=== PATIENT | female | born 1965 | race Caucasian/White ===

== ENCOUNTER 2018-10-05 21:34 | Emergency (ER) | payer OTHER ==
[~2018-10-05] VITALS: Ht 170.2 cm; Wt 99.3 kg
[2018-10-05 21:36] VITALS: BP 148/90
[2018-10-05 22:19] LABS: EOSINOPHILS # (AUTO) 0.1 X10'3 (0-0.9); EOSINOPHILS % (AUTO) 0.6 % (0-6); MEAN PLATELET VOLUME 8.9 FL (7.4-10.4)
[2018-10-05 22:22] LABS: BASOPHILS % (AUTO) 0.3 % (0-1); HEMATOCRIT 45.7 % (35.0-45.0); HEMOGLOBIN 15.2 g/dl (12.0-16.0); LYMPHOCYTES # (AUTO) 3.7 X10'3 (1.1-4.8); LYMPHOCYTES % (AUTO) 24.5 % (21-51); MEAN CORPUSCULAR HEMOGLOBIN 28.8 PG (27.0-31.0); MEAN CORPUSCULAR HGB CONC 33.3 g/dL (33.0-36.5); MEAN CORPUSCULAR VOLUME 86.6 FL (78-98); MONOCYTES # (AUTO) 0.5 X10'3 (0-0.9); MONOCYTES % (AUTO) 3.1 % (2-12); NEUTROPHILS # (AUTO) 10.6 X10'3 (1.8-7.7); NEUTROPHILS % (AUTO) 71.5 % (42-75); PLATELET COUNT 363 X10'3 (140-440); RED BLOOD COUNT 5.28 X10'6 (4.20-5.60); RED CELL DISTRIBUTION WIDTH 12.7 % (11.5-14.5); WHITE BLOOD COUNT 14.9 X10'3 (4.5-11.0)
[2018-10-05 22:31] LABS: ALANINE AMINOTRANSFERASE 36 U/L (12-78); ALBUMIN 3.6 G/DL (3.4-5.0); ALBUMIN/GLOBULIN RATIO 0.9 (1.1-1.5); ALKALINE PHOSPHATASE 81 IU/L (46-116); ANION GAP 10 (8-16); ASPARTATE AMINO TRANSFERASE 24 U/L (10-37); BILIRUBIN,TOTAL 0.4 MG/DL (0.1-1.0); BLOOD UREA NITROGEN 20 MG/DL (7-18); BUN/CREATININE RATIO 28.6 (6.6-38.0); CALCIUM 9.2 MG/DL (8.5-10.1); CHLORIDE 105 MMOL/L (99-107); GLUCOSE 107 MG/DL (70-104); POTASSIUM 3.6 MMOL/L (3.5-5.1); PROTHROMBIN TIME 9.8 SECONDS (9.0-12.0); SODIUM 142 MMOL/L (135-145); TOTAL CARBON DIOXIDE 27.5 MMOL/L (24-32); TOTAL PROTEIN 7.7 G/DL (6.4-8.2); eGFR 88 ML/MIN
[2018-10-05 22:36] LABS: LIPASE 154 U/L (73-393); MAGNESIUM 1.8 MG/DL (1.5-2.4)
[2018-10-05 22:38] LABS: ETHANOL < 0.010 GM/DL (0.0-0.010)
[2018-10-05 22:54] LABS: CLARITY,URINE CLEAR (Clear); COLOR,URINE YELLOW (Yellow); GLUCOSE, URINE NEGATIVE (Neg); KETONES,URINE NEGATIVE (Neg); LEUKOCYTE ESTERASE ,URINE NEGATIVE (Neg); NITRITES, URINE NEGATIVE (Neg); OCCULT BLOOD,URINE NEGATIVE (Neg); PROTEIN,URINE NEGATIVE (Neg); URINE HCG NEGATIVE (NEG)
[2018-10-05 22:55] LABS: UA COLLECTION TYPE CLN CATCH MIDSTREAM
[2018-10-05 23:05] LABS: URINE AMPHETAMINE SCREEN POSITIVE (Neg); URINE BARBITUATE SCREEN NEGATIVE (Neg); URINE BENZODIAZEPINES SCREEN NEGATIVE (Neg); URINE CANNABINOID SCREEN NEGATIVE (Neg); URINE COCAINE SCREEN NEGATIVE (Neg); URINE METHADONE SCREEN NEGATIVE (Neg); URINE OPIATE SCREEN NEGATIVE (Neg); URINE PHENCYCLIDINE SCREEN NEGATIVE (Neg)
[2018-10-05] MEDS ORDERED: LIDOcaine Viscous 15ml cup PO ONE (23:10)
[2018-10-05] MEDS ORDERED: mag hydrox/Alum hydrox/simeth 30ml oral suspension PO ONE (23:10)
[2018-10-05] MEDS ORDERED: famotidine 20mg tablet PO ONE (23:10)
[2018-10-05] MEDS ORDERED: FAMO-128 PO (23:12)
== END 2018-10-05 23:44 | disposition home or self-care (01) ==
LOC: ER 21:35
DX: R10.9 Unspecified abdominal pain (principal); R07.81 Pleurodynia; F15.10 Other stimulant abuse, uncomplicated; Z91.040 Latex allergy status; Z88.5 Allergy status to narcotic agent; Z88.8 Allergy status to other drugs, medicaments and biological substances
CPT/HCPCS: 36415; 71046; 80053; 80305; 80320; 81003; 81025; 83690; 83735; 85025; 85610; 93005; 99284

== ENCOUNTER 2023-12-03 10:50 | Outpatient (CLI) | payer MEDICAID ==
[~2023-12-03 10:50] MED LIST: FAMO-128 PO
== END 2023-12-03 23:59 | disposition home or self-care (01) ==
LOC: RAD 10:50
PROVIDERS: ATTEND General Practice
DX: M25.862 Other specified joint disorders, left knee (principal); M25.562 Pain in left knee
CPT/HCPCS: 73564

== ENCOUNTER 2023-12-29 20:41 | Emergency (ER) | payer MEDICAID ==
[~2023-12-29] VITALS: Ht 170.2 cm; Wt 98.0 kg
[2023-12-29 21:08] LABS: BASOPHILS % (AUTO) 0.2 % (0-1); EOSINOPHILS # (AUTO) 0.2 X10'3 (0-0.9); EOSINOPHILS % (AUTO) 1.3 % (0-6); HEMATOCRIT 40.7 % (35.0-45.0); HEMOGLOBIN 13.8 g/dl (12.0-16.0); LYMPHOCYTES # (AUTO) 3.8 X10'3 (1.1-4.8); LYMPHOCYTES % (AUTO) 29.4 % (21-51); MEAN CORPUSCULAR HEMOGLOBIN 29.8 PG (27.0-31.0); MEAN CORPUSCULAR HGB CONC 34.1 g/dL (33.0-36.5); MEAN CORPUSCULAR VOLUME 87.4 FL (78-98); MEAN PLATELET VOLUME 8.5 FL (7.4-10.4); MONOCYTES # (AUTO) 0.7 X10'3 (0-0.9); MONOCYTES % (AUTO) 5.4 % (2-12); NEUTROPHILS # (AUTO) 8.1 X10'3 (1.8-7.7); NEUTROPHILS % (AUTO) 63.7 % (42-75); PLATELET COUNT 326 X10'3 (140-440); RED BLOOD COUNT 4.65 X10'6 (4.20-5.60); RED CELL DISTRIBUTION WIDTH 12.8 % (11.5-14.5); WHITE BLOOD COUNT 12.8 X10'3 (4.5-11.0)
[2023-12-29 21:21] LABS: ALANINE AMINOTRANSFERASE 31 U/L (12-78); ALBUMIN 3.8 G/DL (3.4-5.0); ALBUMIN/GLOBULIN RATIO 0.9 (1.1-1.5); ALKALINE PHOSPHATASE 71 IU/L (46-116); ANION GAP 10 (8-16); ASPARTATE AMINO TRANSFERASE 17 U/L (10-37); BILIRUBIN,TOTAL 0.6 MG/DL (0.1-1.0); BLOOD UREA NITROGEN 11 MG/DL (7-18); BUN/CREATININE RATIO 16.4 (10.0-20.0); CALCIUM 9.1 MG/DL (8.5-10.1); CHLORIDE 104 MMOL/L (99-107); CREATININE 0.67 MG/DL (0.40-0.90); GLUCOSE 105 MG/DL (70-104); POTASSIUM 3.4 MMOL/L (3.5-5.1); SODIUM 141 MMOL/L (135-145); TOTAL CARBON DIOXIDE 27.3 MMOL/L (24-32); eCRCL 90 ML/MIN; eGFR > 90 ML/MIN
[2023-12-29 21:29] LABS: PRO BRAIN NATRIURETIC PEPTIDE 52 PG/ML (0-125)
[2023-12-29] MEDS: ondansetron 4mg rapidly disintigrating tab PO ONE (23:13)
[2023-12-29] MEDS ORDERED: HYDR-3965 PO (23:58)
[2023-12-30] MEDS: potassium Cl 20 mEq SR tablet PO STA (00:12)
[2023-12-30] MEDS: HYDROcodone/acetaminophen 5mg/325mg tablet PO ONE (00:12)
[2023-12-30 00:17] VITALS: BP 120/95; PULSE 77; RESP 14; TEMP 98.4; O2SAT 98
[2023-12-30] MEDS: ketorolac trometh. 30mg/ml inj. IV ONE (00:26)
[2023-12-30] MEDS: ketorolac tromethamine 15mg/ml inj. IV ONE (00:26)
== END 2023-12-30 00:32 | disposition home or self-care (01) ==
LOC: ER 20:42
DX: R07.89 Other chest pain (principal); E78.00 Pure hypercholesterolemia, unspecified; I10 Essential (primary) hypertension; E11.9 Type 2 diabetes mellitus without complications; Z91.040 Latex allergy status; Z79.899 Other long term (current) drug therapy
CPT/HCPCS: 36415; 71045; 80053; 83880; 84484; 85025; 93005; 96374; 99285; J1885

== ENCOUNTER 2024-07-21 14:25 | Outpatient (CLI) | payer MEDICAID | END 2024-07-21 23:59 | disposition home or self-care (01) | LOC: MRI 14:25 | PROVIDERS: ATTEND Podiatrist Foot & Ankle Surgery | DX: M19.071 Primary osteoarthritis, right ankle and foot (principal); M21.6X2 Other acquired deformities of left foot; M21.6X1 Other acquired deformities of right foot; M79.672 Pain in left foot; M77.41 Metatarsalgia, right foot; M77.42 Metatarsalgia, left foot; D36.10 Benign neoplasm of peripheral nerves and autonomic nervous system, unspecified; M25.374 Other instability, right foot; M25.375 Other instability, left foot; M72.2 Plantar fascial fibromatosis; M20.12 Hallux valgus (acquired), left foot | CPT/HCPCS: 73718 ==

== ENCOUNTER 2024-08-24 16:11 | Inpatient (IN) | payer MEDICAID ==
[~2024-08-24] VITALS: Ht 170.2 cm; Wt 105.7 kg
[2024-08-24 17:36] LABS: BASOPHILS # (AUTO) 0.1 X10'3 (0-0.2); BASOPHILS % (AUTO) 0.4 % (0-1); EOSINOPHILS % (AUTO) 0.1 % (0-6); HEMATOCRIT 39.9 % (35.0-45.0); HEMOGLOBIN 13.5 g/dl (12.0-16.0); LYMPHOCYTES # (AUTO) 1.6 X10'3 (1.1-4.8); LYMPHOCYTES % (AUTO) 8.4 % (21-51); MEAN CORPUSCULAR HGB CONC 33.7 g/dL (33.0-36.5); MEAN PLATELET VOLUME 8.9 FL (7.4-10.4); MONOCYTES % (AUTO) 5.2 % (2-12); NEUTROPHILS # (AUTO) 16.4 X10'3 (1.8-7.7); NEUTROPHILS % (AUTO) 85.9 % (42-75); PLATELET COUNT 336 X10'3 (140-440); RED BLOOD COUNT 4.48 X10'6 (4.20-5.60); WHITE BLOOD COUNT 19.1 X10'3 (4.5-11.0)
[2024-08-24] MEDS: normal saline 1000ML IV soln IVB ONE (17:39)
[2024-08-24] MEDS: ketorolac trometh 15mg/ml vial 15 MG/ML ML IV ONE (17:48)
[2024-08-24] MEDS: piperacillin/tazo 3.375gm/50ml 50 ML IV ONE (17:55)
[2024-08-24] MEDS ORDERED: IBUP-1985 PO (17:58)
[2024-08-24] MEDS ORDERED: ROSU10TA72 PO (17:58)
[2024-08-24] MEDS ORDERED: MELO-102 PO (17:58)
[2024-08-24] MEDS ORDERED: LORA10TA7 PO (17:58)
[2024-08-24] MEDS ORDERED: OMEP20CA16 PO (17:58)
[2024-08-24] MEDS ORDERED: ALBU10.7 (17:58)
[2024-08-24] MEDS ORDERED: MONT-40 PO (17:58)
[2024-08-24] MEDS ORDERED: ACET-75 PO (17:58)
[2024-08-24] MEDS ORDERED: ALBUTEROL (17:58)
[2024-08-24] MEDS ORDERED: OXYC5TAB2 PO (17:58)
[2024-08-24 18:01] LABS: ALBUMIN 3.9 G/DL (3.4-5.0); ANION GAP 13 (8-16); BLOOD UREA NITROGEN 10 MG/DL (7-18); BUN/CREATININE RATIO 17.9 (10.0-20.0); CALCIUM 9.4 MG/DL (8.5-10.1); CHLORIDE 101 MMOL/L (99-107); CREATININE 0.56 MG/DL (0.40-0.90); GLUCOSE 125 MG/DL (70-104); POTASSIUM 3.6 MMOL/L (3.5-5.1); SODIUM 139 MMOL/L (135-145); TOTAL CARBON DIOXIDE 25.5 MMOL/L (24-32); eCRCL 106 ML/MIN; eGFR > 90 ML/MIN
[2024-08-24] MEDS: morphine 4 MG/ML inj SYRINge IV ONE (18:18)
[2024-08-24 18:30] LABS: C-REACTIVE PROTEIN 6.03 MG/DL (0.0-0.5)
[2024-08-24 19:13] LABS: D-DIMER 1.72 MG/L FEU (0-0.50)
[2024-08-24] MEDS ORDERED: VANCOmycin 1250MG/NS 250ml Bag 250 ML IV SCH (20:00)
[2024-08-24] MEDS ORDERED: VANCOMYCIN 1GM 200ML H20 (PEG) 200 ML IV SCH (20:00)
[2024-08-24] MEDS ORDERED: potassium Cl 40MEQ/1/2NS 520ml 520 ML IV PRN (20:40)
[2024-08-24] MEDS ORDERED: morphine 2 MG/ML inj. syringe IV PRN (20:40)
[2024-08-24] MEDS ORDERED: magnesium sulf-water 2g/50mL 50 ML IV PRN (20:40)
[2024-08-24] MEDS ORDERED: magnesium sulf-water 4G/100mL 100 ML IV PRN (20:40)
[2024-08-24] MEDS ORDERED: mag hydrox/Alum hydrox/simeth 30ml oral suspension PO PRN (20:40)
[2024-08-24] MEDS ORDERED: magnesium hydroxide 30ml (MOM) UD suspension PO PRN (20:40)
[2024-08-24] MEDS ORDERED: ondansetron/PF 4mg/2ml inj IV PRN (20:40)
[2024-08-24] MEDS ORDERED: magnesium Cl slow-release 64mg tablet PO PRN (20:40)
[2024-08-24] MEDS: vancomycin/NS 1 GM ADD-VANTAGE 250 ML IV SCH (20:40)
[2024-08-24] MEDS ORDERED: potassium Cl 20 mEq SR tablet PO PRN (20:40)
[2024-08-24] MEDS ORDERED: iohexol 350MG/ML 100ml bottle IV ONE (21:19)
[2024-08-24] MEDS ORDERED: non-formulary drug (Acetaminophen 1 TAB) PO PRN (21:30)
[2024-08-24 21:41] LABS: BFAPPEAR CLOUDY; BFSOURCE OTHER
[2024-08-24 21:42] LABS: BFCOLOR AMBER; BFVOLUME 23 ML
[2024-08-24 21:44] LABS: BF RBC COUNT 23700 /CU MM; BF WBC COUNT 1050 /CU MM (0-1000); EOSINOPHILS,BODY FLUID 6 %; LYMPHOCYTES,BODY FLUID 66 %; MONOCYTES,BODY FLUID 20 %; NEUTROPHILS,BODY FLUID 8 %
[2024-08-24] MEDS: normal saline 1000ml 1,000 ML IV SCH (22:28)
[2024-08-24] MEDS: acetaminophen 325mg tablet PO PRN (23:38)
[2024-08-25 03:28] LABS: BASOPHILS % (AUTO) 0.2 % (0-1); EOSINOPHILS # (AUTO) 0.1 X10'3 (0-0.9); EOSINOPHILS % (AUTO) 0.8 % (0-6); HEMATOCRIT 37.3 % (35.0-45.0); HEMOGLOBIN 12.2 g/dl (12.0-16.0); LYMPHOCYTES # (AUTO) 2.9 X10'3 (1.1-4.8); LYMPHOCYTES % (AUTO) 17.4 % (21-51); MEAN CORPUSCULAR HEMOGLOBIN 29.5 PG (27.0-31.0); MEAN CORPUSCULAR HGB CONC 32.8 g/dL (33.0-36.5); MEAN PLATELET VOLUME 8.7 FL (7.4-10.4); MONOCYTES # (AUTO) 1.3 X10'3 (0-0.9); MONOCYTES % (AUTO) 7.9 % (2-12); NEUTROPHILS # (AUTO) 12.3 X10'3 (1.8-7.7); NEUTROPHILS % (AUTO) 73.7 % (42-75); PLATELET COUNT 294 X10'3 (140-440); RED BLOOD COUNT 4.14 X10'6 (4.20-5.60); RED CELL DISTRIBUTION WIDTH 13.2 % (11.5-14.5); WHITE BLOOD COUNT 16.6 X10'3 (4.5-11.0)
[2024-08-25 03:45] LABS: ALANINE AMINOTRANSFERASE 21 U/L (12-78); ALBUMIN 3.3 G/DL (3.4-5.0); ALBUMIN/GLOBULIN RATIO 0.9 (1.1-1.5); ALKALINE PHOSPHATASE 84 IU/L (46-116); ANION GAP 7 (8-16); ASPARTATE AMINO TRANSFERASE 11 U/L (10-37); BILIRUBIN,TOTAL 0.7 MG/DL (0.1-1.0); BLOOD UREA NITROGEN 13 MG/DL (7-18); BUN/CREATININE RATIO 22.4 (10.0-20.0); CALCIUM 9.3 MG/DL (8.5-10.1); CHLORIDE 104 MMOL/L (99-107); CREATININE 0.58 MG/DL (0.40-0.90); GLUCOSE 103 MG/DL (70-104); MAGNESIUM 1.9 MG/DL (1.5-2.4); POTASSIUM 3.2 MMOL/L (3.5-5.1); SODIUM 140 MMOL/L (135-145); TOTAL CARBON DIOXIDE 28.8 MMOL/L (24-32); TOTAL PROTEIN 6.9 G/DL (6.4-8.2); eCRCL 103 ML/MIN; eGFR > 90 ML/MIN
[2024-08-25] MEDS: pantoprazole 40mg Tablet.DR PO SCH (05:41)
[2024-08-25] MEDS: morphine 2 MG/ML inj. syringe IV PRN (05:44)
[2024-08-25] MEDS: K and/or MAG REPLACEMENT MC SCH (07:24)
[2024-08-25] MEDS: loratadine 10mg tablet PO SCH (07:26)
[2024-08-25] MEDS: montelukast 10mg tablet PO SCH (07:27)
[2024-08-25] MEDS: potassium Cl 20 mEq SR tablet PO PRN (07:27)
[2024-08-25] MEDS: oxyCODONE IR 5mg (immed. release) tablet PO SCH (07:28)
[2024-08-25] MEDS: famotidine 20mg tablet PO SCH (07:28)
[2024-08-25] MEDS: docusate sod 100mg capsule PO SCH (07:28)
[2024-08-25] MEDS: heparin, porcine 5000 units/ml vial SQ SCH (07:29)
[2024-08-25] MEDS: MELOXICAM 7.5 MG TABLET PO SCH (07:53)
[2024-08-25 08:25] LABS: BILIRUBIN,URINE NEGATIVE (Neg); CLARITY,URINE CLEAR (Clear); COLOR,URINE YELLOW (Yellow); GLUCOSE, URINE NEGATIVE (Neg); KETONES,URINE NEGATIVE (Neg); LEUKOCYTE ESTERASE ,URINE SMALL (Neg); NITRITES, URINE NEGATIVE (Neg); OCCULT BLOOD,URINE TRACE-INTACT (Neg); PROTEIN,URINE NEGATIVE (Neg); UROBILINOGEN,URINE 0.2 E.U/dL (0.2-1.0)
[2024-08-25 08:39] LABS: SQUAMOUS EPITHELIAL CELL,UR MANY /LPF (FEW); UA COLLECTION TYPE CLN CATCH MIDSTREAM
[2024-08-25 08:40] LABS: BACTERIA,URINE FEW /HPF (Neg); WBC,URINE 30-50 /HPF (0-4)
[2024-08-25 19:45] VITALS: BP 148/67; PULSE 72; RESP 18; TEMP 97.5; O2SAT 96
[2024-08-25] MEDS: atorvastatin 20mg tablet PO SCH (20:34)
[2024-08-25 21:00] VITALS: RESP 18; O2SAT 96
[2024-08-25 22:00] VITALS: BP 151/77; PULSE 75; RESP 16; TEMP 98; O2SAT 94
[2024-08-26 04:54] LABS: BASOPHILS % (AUTO) 0.2 % (0-1); EOSINOPHILS # (AUTO) 0.4 X10'3 (0-0.9); EOSINOPHILS % (AUTO) 3.5 % (0-6); HEMATOCRIT 34.9 % (35.0-45.0); HEMOGLOBIN 11.4 g/dl (12.0-16.0); LYMPHOCYTES % (AUTO) 25.5 % (21-51); MEAN CORPUSCULAR HEMOGLOBIN 29.6 PG (27.0-31.0); MEAN CORPUSCULAR HGB CONC 32.8 g/dL (33.0-36.5); MEAN CORPUSCULAR VOLUME 90.3 FL (78-98); MEAN PLATELET VOLUME 8.1 FL (7.4-10.4); MONOCYTES # (AUTO) 0.8 X10'3 (0-0.9); MONOCYTES % (AUTO) 7.1 % (2-12); NEUTROPHILS # (AUTO) 7.4 X10'3 (1.8-7.7); NEUTROPHILS % (AUTO) 63.7 % (42-75); PLATELET COUNT 285 X10'3 (140-440); RED BLOOD COUNT 3.86 X10'6 (4.20-5.60); RED CELL DISTRIBUTION WIDTH 13.5 % (11.5-14.5); WHITE BLOOD COUNT 11.7 X10'3 (4.5-11.0)
[2024-08-26 05:12] LABS: ALANINE AMINOTRANSFERASE 21 U/L (12-78); ALBUMIN/GLOBULIN RATIO 0.8 (1.1-1.5); ALKALINE PHOSPHATASE 83 IU/L (46-116); ANION GAP 7 (8-16); ASPARTATE AMINO TRANSFERASE 19 U/L (10-37); BILIRUBIN,TOTAL 0.7 MG/DL (0.1-1.0); BLOOD UREA NITROGEN 11 MG/DL (7-18); CALCIUM 8.7 MG/DL (8.5-10.1); CHLORIDE 106 MMOL/L (99-107); GLUCOSE 102 MG/DL (70-104); MAGNESIUM 1.7 MG/DL (1.5-2.4); POTASSIUM 3.8 MMOL/L (3.5-5.1); SODIUM 141 MMOL/L (135-145); TOTAL CARBON DIOXIDE 27.6 MMOL/L (24-32); TOTAL PROTEIN 6.6 G/DL (6.4-8.2); eCRCL 119 ML/MIN; eGFR > 90 ML/MIN
[2024-08-26 06:00] VITALS: BP 137/78; PULSE 63; RESP 16; TEMP 96.5; O2SAT 95
[2024-08-26] MEDS: piperacillin/tazo 3.375gm/50ml 50 ML IV SCH (08:48)
[2024-08-26 10:00] VITALS: BP 126/81; PULSE 77; RESP 16; TEMP 97.8; O2SAT 97
[2024-08-26] MEDS: VANCOMYCIN LEVEL IV ONE (11:30)
[2024-08-26] MEDS ORDERED: VANCOMYCIN 1GM 200ML H20 (PEG) 200 ML IV SCH ×2 (13:30→20:00)
[2024-08-26 18:00] VITALS: BP 154/89; PULSE 75; RESP 16; TEMP 97.7; O2SAT 96
[2024-08-26 20:00] VITALS: RESP 18; O2SAT 96
[2024-08-26] MEDS: VANCOMYCIN/WATER FOR INJ (PEG) 1.25GM/250 ML IVPB IV SCH (20:08)
[2024-08-26 22:00] VITALS: BP 142/86; PULSE 80; RESP 18; TEMP 99.7; O2SAT 94
[2024-08-27 05:01] LABS: BASOPHILS % (AUTO) 0.4 % (0-1); EOSINOPHILS # (AUTO) 0.5 X10'3 (0-0.9); HEMATOCRIT 35.5 % (35.0-45.0); HEMOGLOBIN 12.1 g/dl (12.0-16.0); LYMPHOCYTES # (AUTO) 3.1 X10'3 (1.1-4.8); LYMPHOCYTES % (AUTO) 31.8 % (21-51); MEAN CORPUSCULAR HEMOGLOBIN 30.8 PG (27.0-31.0); MEAN CORPUSCULAR HGB CONC 34.1 g/dL (33.0-36.5); MEAN CORPUSCULAR VOLUME 90.3 FL (78-98); MEAN PLATELET VOLUME 8.5 FL (7.4-10.4); MONOCYTES # (AUTO) 0.8 X10'3 (0-0.9); MONOCYTES % (AUTO) 7.9 % (2-12); NEUTROPHILS # (AUTO) 5.4 X10'3 (1.8-7.7); NEUTROPHILS % (AUTO) 54.9 % (42-75); PLATELET COUNT 298 X10'3 (140-440); RED BLOOD COUNT 3.93 X10'6 (4.20-5.60); RED CELL DISTRIBUTION WIDTH 12.9 % (11.5-14.5); WHITE BLOOD COUNT 9.8 X10'3 (4.5-11.0)
[2024-08-27 05:17] LABS: ALANINE AMINOTRANSFERASE 26 U/L (12-78); ALBUMIN 3.2 G/DL (3.4-5.0); ALBUMIN/GLOBULIN RATIO 0.9 (1.1-1.5); ALKALINE PHOSPHATASE 81 IU/L (46-116); ANION GAP 5 (8-16); ASPARTATE AMINO TRANSFERASE 22 U/L (10-37); BILIRUBIN,TOTAL 0.6 MG/DL (0.1-1.0); BLOOD UREA NITROGEN 11 MG/DL (7-18); BUN/CREATININE RATIO 15.9 (10.0-20.0); CALCIUM 9.4 MG/DL (8.5-10.1); CHLORIDE 105 MMOL/L (99-107); CREATININE 0.69 MG/DL (0.40-0.90); GLUCOSE 114 MG/DL (70-104); MAGNESIUM 1.8 MG/DL (1.5-2.4); POTASSIUM 4.3 MMOL/L (3.5-5.1); SODIUM 142 MMOL/L (135-145); TOTAL CARBON DIOXIDE 31.9 MMOL/L (24-32); TOTAL PROTEIN 6.9 G/DL (6.4-8.2); eCRCL 86 ML/MIN; eGFR 87 ML/MIN
[2024-08-27 06:00] VITALS: BP 140/80; PULSE 68; RESP 18; TEMP 97.6; O2SAT 96
[2024-08-27 10:00] VITALS: BP 142/83; PULSE 67; RESP 18; TEMP 97.6; O2SAT 94
[2024-08-27] MEDS ORDERED: LEVO750T68 PO (15:59)
[2024-08-27] MEDS ORDERED: LACT1CAP26 PO (16:02)
[2024-08-27] MEDS ORDERED: LINE600T14 PO (16:39)
[2024-08-27] MEDS ORDERED: VANCOMYCIN LEVEL IV ONE (19:30)
== END 2024-08-27 17:11 | disposition home health service (06) | DRG 720 ==
LOC: ER 16:11 → ED HOLD 19:27 → SUR 3N 08-25 19:40
PROVIDERS: ADMIT Surgery Surgical Critical Care; ATTEND Internal Medicine
PROC: 0S9D3ZZ Drainage of Left Knee Joint, Percutaneous Approach (ICD-10-PCS; principal; 2024-08-24)
PROC: B32T1ZZ Computerized Tomography (CT Scan) of Left Pulmonary Artery using Low Osmolar Contrast (ICD-10-PCS; 2024-08-24)
PROC: B3201ZZ Computerized Tomography (CT Scan) of Thoracic Aorta using Low Osmolar Contrast (ICD-10-PCS; 2024-08-24)
PROC: B32S1ZZ Computerized Tomography (CT Scan) of Right Pulmonary Artery using Low Osmolar Contrast (ICD-10-PCS; 2024-08-24)
DX: A41.9 Sepsis, unspecified organism (principal); E11.42 Type 2 diabetes mellitus with diabetic polyneuropathy; M00.862 Arthritis due to other bacteria, left knee; E78.00 Pure hypercholesterolemia, unspecified; E78.5 Hyperlipidemia, unspecified; D72.829 Elevated white blood cell count, unspecified; I10 Essential (primary) hypertension; J45.909 Unspecified asthma, uncomplicated; M25.462 Effusion, left knee; Z90.49 Acquired absence of other specified parts of digestive tract; K21.9 Gastro-esophageal reflux disease without esophagitis; Z20.822 Contact with and (suspected) exposure to COVID-19; Z96.653 Presence of artificial knee joint, bilateral; Z88.8 Allergy status to other drugs, medicaments and biological substances; Z85.42 Personal history of malignant neoplasm of other parts of uterus; Z86.73 Personal history of transient ischemic attack (TIA), and cerebral infarction without residual deficits; Z88.6 Allergy status to analgesic agent; Z90.710 Acquired absence of both cervix and uterus; Z98.84 Bariatric surgery status; Z91.040 Latex allergy status
CPT/HCPCS: 20610; 36415; 71045; 71275; 73564; 73700; 80048; 80053; 80202; 81001; 83605; 83735; 84145; 85025; 85379; 85651; 86140; 87015; 87040; 87070; 87081; 87502; 87503; 87811; 89051; 93306; 93970; 97116; 97161; 97530; 99285; A6449; G0378; J1644; J1885; J2270; J2543; J3370; J3372; J7030; Q9967

== ENCOUNTER 2024-09-10 16:51 | Emergency (ER) | payer MEDICAID ==
[~2024-09-10] VITALS: Ht 170.2 cm; Wt 105.7 kg
[~2024-09-10 16:51] MED LIST changes: +ACET-75 PO; +ALBU10.7; +ALBUTEROL; +IBUP-1985 PO; +LACT1CAP26 PO; +LINE600T14 PO; +LORA10TA7 PO; +MELO-102 PO; +MONT-40 PO; +OMEP20CA16 PO; +OXYC5TAB2 PO; +ROSU10TA72 PO
[2024-09-10 16:58] VITALS: BP 163/106; PULSE 78; RESP 22; TEMP 97.7; O2SAT 97
[2024-09-11] MEDS ORDERED: FAMO-128 PO (21:30)
[2024-09-11] MEDS ORDERED: FAMO20TA8 PO (21:37)
== END 2024-09-10 21:56 | disposition left against medical advice (07) ==
LOC: ER 16:52
DX: M54.9 Dorsalgia, unspecified (principal); R10.9 Unspecified abdominal pain; Z91.040 Latex allergy status; Z79.82 Long term (current) use of aspirin; Z53.21 Procedure and treatment not carried out due to patient leaving prior to being seen by health care provider

== ENCOUNTER 2024-09-10 22:55 | Inpatient (IN) | payer MEDICAID ==
[~2024-09-10] VITALS: Ht 170.2 cm; Wt 106.8 kg
[2024-09-10 23:41] LABS: BILIRUBIN,URINE NEGATIVE (Neg); CLARITY,URINE CLEAR (Clear); COLOR,URINE YELLOW (Yellow); GLUCOSE, URINE NEGATIVE (Neg); KETONES,URINE 15 mg/dl (Neg); LEUKOCYTE ESTERASE ,URINE NEGATIVE (Neg); NITRITES, URINE NEGATIVE (Neg); OCCULT BLOOD,URINE TRACE-INTACT (Neg); PH,URINE 5.5 (4.8-8.0); PROTEIN,URINE 30 mg/dl (Neg); UROBILINOGEN,URINE 0.2 E.U/dL (0.2-1.0)
[2024-09-10 23:42] LABS: URINE HCG NEGATIVE (NEG)
[2024-09-10 23:46] LABS: UA COLLECTION TYPE VOIDED
[2024-09-10 23:48] LABS: BACTERIA,URINE NONE SEEN /HPF (Neg); WBC,URINE 0-4 /HPF (0-4)
[2024-09-10 23:49] LABS: SQUAMOUS EPITHELIAL CELL,UR NONE SEEN /LPF (FEW)
[2024-09-10 23:50] LABS: CAL OXALATE CRYSTALS 2+ /HPF (NEGATIVE)
[2024-09-10 23:56] LABS: BASOPHILS % (AUTO) 0.2 % (0-1); EOSINOPHILS # (AUTO) 0.1 X10'3 (0-0.9); EOSINOPHILS % (AUTO) 0.4 % (0-6); HEMATOCRIT 39.1 % (35.0-45.0); HEMOGLOBIN 13.1 g/dl (12.0-16.0); LYMPHOCYTES % (AUTO) 12.4 % (21-51); MEAN CORPUSCULAR HEMOGLOBIN 29.8 PG (27.0-31.0); MEAN CORPUSCULAR HGB CONC 33.4 g/dL (33.0-36.5); MEAN CORPUSCULAR VOLUME 89.1 FL (78-98); MONOCYTES # (AUTO) 0.9 X10'3 (0-0.9); MONOCYTES % (AUTO) 5.7 % (2-12); NEUTROPHILS # (AUTO) 13.2 X10'3 (1.8-7.7); NEUTROPHILS % (AUTO) 81.3 % (42-75); PLATELET COUNT 261 X10'3 (140-440); RED BLOOD COUNT 4.39 X10'6 (4.20-5.60); WHITE BLOOD COUNT 16.2 X10'3 (4.5-11.0)
[2024-09-11] VITALS (19 sets, daily range): BP systolic 111–163; BP diastolic 37–106; PULSE 70–101; RESP 12–18; TEMP 97.8–98.2; O2SAT 93–100
[2024-09-11 00:11] LABS: ALANINE AMINOTRANSFERASE 43 U/L (12-78); ALKALINE PHOSPHATASE 66 IU/L (46-116); ANION GAP 12 (8-16); ASPARTATE AMINO TRANSFERASE 29 U/L (10-37); BILIRUBIN,TOTAL 0.8 MG/DL (0.1-1.0); BLOOD UREA NITROGEN 23 MG/DL (7-18); BUN/CREATININE RATIO 25.8 (10.0-20.0); CALCIUM 9.4 MG/DL (8.5-10.1); CHLORIDE 104 MMOL/L (99-107); CREATININE 0.89 MG/DL (0.40-0.90); GLUCOSE 142 MG/DL (70-104); LIPASE 43 U/L (16-77); POTASSIUM 3.7 MMOL/L (3.5-5.1); SODIUM 141 MMOL/L (135-145); TOTAL CARBON DIOXIDE 25.2 MMOL/L (24-32); TOTAL PROTEIN 8.2 G/DL (6.4-8.2); eCRCL 67 ML/MIN; eGFR 65 ML/MIN
[2024-09-11] MEDS: normal saline 1000ml 1,000 ML IV ONE (04:48)
[2024-09-11] MEDS: morphine 4 MG/ML inj SYRINge IV ONE ×2 (04:48→05:08)
[2024-09-11] MEDS: metoclopramide 5 mg/ml inj IV ONE (04:48)
[2024-09-11] MEDS: ondansetron/PF 4mg/2ml inj IV ONE (05:09)
[2024-09-11] MEDS ORDERED: potassium Cl 40MEQ/1/2NS 520ml 520 ML IV PRN (06:05)
[2024-09-11] MEDS ORDERED: magnesium sulf-water 4G/100mL 100 ML IV PRN (06:05)
[2024-09-11] MEDS ORDERED: magnesium hydroxide 30ml (MOM) UD suspension PO PRN (06:05)
[2024-09-11] MEDS ORDERED: mag hydrox/Alum hydrox/simeth 30ml oral suspension PO PRN (06:05)
[2024-09-11] MEDS ORDERED: ondansetron/PF 4mg/2ml inj IV PRN ×3 (06:05→12:50)
[2024-09-11] MEDS ORDERED: potassium Cl 20 mEq SR tablet PO PRN ×2 (06:05)
[2024-09-11] MEDS ORDERED: magnesium sulf-water 2g/50mL 50 ML IV PRN (06:05)
[2024-09-11] MEDS ORDERED: magnesium Cl slow-release 64mg tablet PO PRN (06:05)
[2024-09-11] MEDS: CefTRIAXone/D5W-Rocephin 1gm 50 ML IV ONE (06:20)
[2024-09-11] MEDS: docusate sod 100mg capsule PO SCH (06:39)
[2024-09-11] MEDS: K and/or MAG REPLACEMENT MC SCH (06:39)
[2024-09-11] MEDS: normal saline 1000ml 1,000 ML IV SCH (06:40)
[2024-09-11] MEDS: CEFEPIME 2gm in D5W 50mL 50 ML IV SCH (07:38)
[2024-09-11 07:44] LABS: MAGNESIUM 1.7 MG/DL (1.5-2.4); POTASSIUM 4.2 MMOL/L (3.5-5.1)
[2024-09-11] MEDS ORDERED: ciprofloxacin lact 400MG/200ML 200 ML IV SCH (08:00)
[2024-09-11] MEDS: morphine 2 MG/ML inj. syringe IV PRN (08:23)
[2024-09-11] MEDS: HYDROcodone/acetaminophen 5mg/325mg tablet PO PRN (10:06)
[2024-09-11] MEDS ORDERED: iohexol 300 MG/1 ML 50ml polymer ONE (11:42)
[2024-09-11] MEDS ORDERED: fentaNYL/PF 50MCG/1 ML 2ML syringe ONE (11:59)
[2024-09-11] MEDS ORDERED: midazolam 1 mg/ML 2ml injection ONE (11:59)
[2024-09-11] MEDS ORDERED: propofol inj 20 ML IV ONE (12:24)
[2024-09-11] MEDS ORDERED: ceFAZolin 1000mg inj ONE ×2 (12:24)
[2024-09-11] MEDS ORDERED: ringers solution, lacted 1,000 ML IV SCH (12:50)
[2024-09-11] MEDS ORDERED: meperidine/PF 25mg/ml syringe IV PRN ×3 (12:50)
[2024-09-11] MEDS ORDERED: morphine 2 MG/ML inj. syringe IV PRN (12:50)
[2024-09-11] MEDS ORDERED: proCHLORperazine 10 MG/2 ml inj IV PRN (12:50)
[2024-09-11] MEDS ORDERED: morphine 4 MG/ML inj SYRINge IV PRN (12:50)
[2024-09-11] MEDS: phenazopyridine 100mg tablet PO SCH (20:05)
[2024-09-11] MEDS: pantoprazole 40 MG vial IV SCH (20:05)
[2024-09-11] MEDS ORDERED: FAMO-128 PO (21:30)
[2024-09-11] MEDS ORDERED: FAMO20TA8 PO (21:37)
[2024-09-12] MEDS: acetaminophen 325mg tablet PO PRN (05:20)
[2024-09-12 05:51] LABS: BASOPHILS % (AUTO) 0.3 % (0-1); EOSINOPHILS # (AUTO) 0.2 X10'3 (0-0.9); EOSINOPHILS % (AUTO) 2.6 % (0-6); HEMATOCRIT 36.5 % (35.0-45.0); HEMOGLOBIN 12.1 g/dl (12.0-16.0); LYMPHOCYTES # (AUTO) 3.1 X10'3 (1.1-4.8); LYMPHOCYTES % (AUTO) 36.7 % (21-51); MEAN CORPUSCULAR HEMOGLOBIN 29.8 PG (27.0-31.0); MEAN CORPUSCULAR HGB CONC 33.1 g/dL (33.0-36.5); MEAN PLATELET VOLUME 7.8 FL (7.4-10.4); MONOCYTES # (AUTO) 0.6 X10'3 (0-0.9); MONOCYTES % (AUTO) 7.2 % (2-12); NEUTROPHILS # (AUTO) 4.5 X10'3 (1.8-7.7); NEUTROPHILS % (AUTO) 53.2 % (42-75); PLATELET COUNT 251 X10'3 (140-440); RED BLOOD COUNT 4.05 X10'6 (4.20-5.60); WHITE BLOOD COUNT 8.4 X10'3 (4.5-11.0)
[2024-09-12 06:00] VITALS: BP 131/69; PULSE 87; RESP 16; TEMP 98; O2SAT 94
[2024-09-12 06:13] LABS: ALBUMIN 3.3 G/DL (3.4-5.0); ANION GAP 6 (8-16); BLOOD UREA NITROGEN 10 MG/DL (7-18); BUN/CREATININE RATIO 17.5 (10.0-20.0); CALCIUM 8.7 MG/DL (8.5-10.1); CHLORIDE 106 MMOL/L (99-107); CREATININE 0.57 MG/DL (0.40-0.90); GLUCOSE 111 MG/DL (70-104); MAGNESIUM 1.9 MG/DL (1.5-2.4); POTASSIUM 4.1 MMOL/L (3.5-5.1); SODIUM 141 MMOL/L (135-145); TOTAL CARBON DIOXIDE 29.1 MMOL/L (24-32); eCRCL 105 ML/MIN; eGFR > 90 ML/MIN
[2024-09-12 08:00] VITALS: RESP 16; O2SAT 94
[2024-09-12] MEDS: CefTRIAXone/D5W-Rocephin 1gm 50 ML IV SCH (09:35)
[2024-09-12 10:00] VITALS: BP 125/70; PULSE 67; RESP 14; TEMP 98.7; O2SAT 95
[2024-09-12] MEDS ORDERED: OXYC-150 PO (11:22)
[2024-09-12] MEDS ORDERED: LEVO750T68 PO (14:43)
== END 2024-09-12 17:45 | disposition home health service (06) | DRG 720 ==
LOC: ER 22:57 → ED HOLD 09-11 05:47 → EDBEDREQ 09-11 11:04 → ORTHO 4S 09-11 14:18
PROVIDERS: ADMIT Internal Medicine Pulmonary Disease; ATTEND Internal Medicine
PROC: BT1D1ZZ Fluoroscopy of Right Kidney, Ureter and Bladder using Low Osmolar Contrast (ICD-10-PCS; 2024-09-11)
PROC: 0T768DZ Dilation of Right Ureter with Intraluminal Device, Via Natural or Artificial Opening Endoscopic (ICD-10-PCS; principal; 2024-09-11 11:58)
DX: A41.9 Sepsis, unspecified organism (principal); N13.6 Pyonephrosis; E78.00 Pure hypercholesterolemia, unspecified; N20.2 Calculus of kidney with calculus of ureter; K57.30 Diverticulosis of large intestine without perforation or abscess without bleeding; R41.0 Disorientation, unspecified; Z98.84 Bariatric surgery status; Z88.0 Allergy status to penicillin; Z79.899 Other long term (current) drug therapy; Z91.040 Latex allergy status
CPT/HCPCS: 36415; 74176; 74420; 76000; 80048; 80053; 81001; 81025; 83605; 83690; 83735; 84132; 84145; 85025; 87040; 97161; 97530; 99285; A4615; A4618; C1758; C1769; C2617; G0378; J0690; J0692; J0696; J2250; J2270; J2405; J2470; J2704; J2765; J3010; J7030; J7120; Q9967

== ENCOUNTER 2024-10-14 13:18 | Outpatient (CLI) | payer MEDICAID ==
[~2024-10-14 13:18] MED LIST changes: -FAMO-128 PO; +FAMO20TA8 PO; -IBUP-1985 PO; -LINE600T14 PO; +OXYC-150 PO
[2024-10-14] MEDS ORDERED: Areds 2 PO (15:21)
[2024-10-14] MEDS ORDERED: TRAM50TA2 PO (15:21)
[2024-10-14] MEDS ORDERED: [UNRECOGNIZED DRUG - OTHER] PO (15:21)
[2024-10-14] MEDS ORDERED: BIOT5000 PO (15:21)
[2024-10-14] MEDS ORDERED: CYAN50009 PO (15:21)
[2024-10-14] MEDS ORDERED: FOLI-91 PO (15:21)
[2024-10-14] MEDS ORDERED: OXYC1TAB17 PO (15:21)
[2024-10-14] MEDS ORDERED: [UNRECOGNIZED DRUG - OTHER] PO (15:21)
[2024-10-14] MEDS ORDERED: OMEGA FISH OIL PO (15:21)
[2024-10-14] MEDS ORDERED: [UNRECOGNIZED DRUG - OTHER] TOP (15:21)
[2024-10-14] MEDS ORDERED: VITAMIN D PO (15:21)
[2024-10-14] MEDS ORDERED: ACET-2971 PO (15:21)
[2024-10-14 15:26] LABS: BASOPHILS % (AUTO) 0.4 % (0-1); EOSINOPHILS # (AUTO) 0.4 X10'3 (0-0.9); EOSINOPHILS % (AUTO) 4.8 % (0-6); LYMPHOCYTES # (AUTO) 2.8 X10'3 (1.1-4.8); MEAN CORPUSCULAR HEMOGLOBIN 29.6 PG (27.0-31.0); MEAN CORPUSCULAR HGB CONC 33.2 g/dL (33.0-36.5); MEAN CORPUSCULAR VOLUME 88.9 FL (78-98); MEAN PLATELET VOLUME 8.6 FL (7.4-10.4); MONOCYTES # (AUTO) 0.5 X10'3 (0-0.9); MONOCYTES % (AUTO) 6.4 % (2-12); NEUTROPHILS # (AUTO) 4.7 X10'3 (1.8-7.7); NEUTROPHILS % (AUTO) 55.4 % (42-75); PRE OP HEMATOCRIT 41.1 % (35.0-45.0); PRE OP HEMOGLOBIN 13.7 g/dL (12.0-16.0); PRE OP PLATELET COUNT 356 X10'3 (140-440); PRE OP WHITE BLOOD COUNT 8.4 10'3 (4.8-10.8); RED BLOOD COUNT 4.62 X10'6 (4.20-5.60); RED CELL DISTRIBUTION WIDTH 12.8 % (11.5-14.5)
[2024-10-14 15:53] LABS: ALBUMIN 3.8 G/DL (3.4-5.0); ALBUMIN/GLOBULIN RATIO 0.9 (1.1-1.5); ALKALINE PHOSPHATASE 68 IU/L (46-116); BLOOD UREA NITROGEN 11 MG/DL (7-18); BUN/CREATININE RATIO 21.2 (10.0-20.0); CALCIUM 9.4 MG/DL (8.5-10.1); CHLORIDE 103 MMOL/L (99-107); CREATININE 0.52 MG/DL (0.40-0.90); PRE OP ALT 53 U/L (30-65); PRE OP ANION GAP 4 (8-16); PRE OP AST 36 U/L (10-37); PRE OP BILIRUB, TOTAL 0.7 MG/DL (0.0-1.0); PRE OP GLUCOSE 86 MG/DL (70-104); PRE OP POTASSIUM 3.8 MMOL/L (3.4-5.1); PRE OP SODIUM 142 MMOL/L (135-145); TOTAL CARBON DIOXIDE 34.6 MMOL/L (24-32); TOTAL PROTEIN 8.2 G/DL (6.4-8.2); eGFR > 90 ML/MIN
== END 2024-10-14 13:59 | disposition home or self-care (01) ==
LOC: LAB 13:18 → EDSTATUS 10-20 13:45
PROVIDERS: ATTEND Urology
DX: Z01.812 Encounter for preprocedural laboratory examination (principal); N20.0 Calculus of kidney
CPT/HCPCS: 36415; 80053; 85025